=== PATIENT | male | born 1995 | race Caucasian/White ===

== ENCOUNTER 2017-03-04 16:46 | Emergency (ER) | payer BC ==
[2017-03-04 17:21] VITALS: BP 142/76
--- NOTE | 2017-03-04 17:58 | UC ---
Throat Pain/Nasal Mikel HPI - HPI Summary HPI Summary: ONE WEEK OF SINUS CONGESTION, PRESSURE. RIGHT EAR PAIN. PRODUCTIVE COUGH. TWO WEEKS AGO DEVELOPED ITCHY RASH UNDER LEFT ARM (WHERE [place] RUBS). HAS NOT SPREAD. - History of Current Complaint Chief Complaint: UCGeneralIllness Stated Complaint: RASH,CONGESTION,SINUSES Time Seen by Provider: 03/04/17 17:40 Hx Obtained From: Patient Onset/Duration: Gradual Onset, Lasting Weeks Severity: Mild Cough: Productive Associated Signs & Symptoms: Positive: Hoarseness, Sinus Discomfort, Nasal Discharge, Rash - Epiglottits Risk Factors Epiglottis Risk Factors: Negative - Allergies/Home Medications Allergies/Adverse Reactions: Allergies Allergy/AdvReac Type Severity Reaction Status Date / Time No Known Allergies Allergy Verified 03/04/17 17:04 PMH/Surg Hx/FS Hx/Imm Hx Previously Healthy: Yes - Surgical History Surgical History: None - Family History Known Family History: Positive: Other - Denies [facility] of [place] - Social History Occupation: Student Lives: With Family Alcohol Use: Occasionally Substance Use Type: None Smoking Status (MU): Never Smoked Tobacco - Immunization History Most Recent Influenza Vaccination: no Review of Systems Constitutional: Fatigue Skin: Rash Eyes: Negative ENT: Ear Ache, Nasal Discharge, Sinus Congestion, Sinus Pain/Tenderness Respiratory: Cough Cardiovascular: Negative Gastrointestinal: Negative Genitourinary: Negative Motor: Negative Neurovascular: Negative Musculoskeletal: Negative Neurological: Negative Psychological: Negative Is Patient Immunocompromised?: No All Other Systems Reviewed And Are Negative: Yes Physical Exam Triage Information Reviewed: Yes Appearance: Well-Appearing, No Pain Distress, Well-Nourished Vital Signs: Initial Vital Signs Temp 97.3 F 03/04/17 17:04 Pulse 80 03/04/17 17:04 Resp 16 03/04/17 17:04 BP 142/76 03/04/17 17:04 Pulse Ox 99 03/04/17 17:04 Vital Signs Reviewed: Yes Eye Exam: Normal ENT: Positive: Pharyngeal erythema, Nasal congestion, Nasal drainage, TM dull Dental Exam: Normal Neck exam: Normal Neck: Positive: Supple, Nontender Respiratory Exam: Normal Respiratory: Positive: Chest non-tender, Lungs clear, Normal breath sounds, No respiratory distress, No accessory muscle use Cardiovascular Exam: Normal Cardiovascular: Positive: RRR, No Murmur, Pulses Normal Abdominal Exam: Normal Musculoskeletal Exam: Normal Musculoskeletal: Positive: Strength Intact, ROM Intact Neurological Exam: Normal Psychological Exam: Normal Skin: Positive: rashes - EXCORIATED IRREGULAR ERRETHEMATOUS MACULE 3CM X 4CM UNDER LEFT ARM (MEDIAL BICEPS ASPECT) Throat Pain/Nasal Course/Dx - Differential Dx/Diagnosis Differential Diagnosis/HQI/PQRI: Sinusitis, URI Provider Diagnoses: SINUSITIS, CONTACT DERMATITIS LEFT ARM Discharge - Discharge Plan Condition: Stable Disposition: HOME Prescriptions: Amoxicillin/Clavulanate TAB* [Augmentin TAB 875*] 875 mg PO BID #20 tab Benzonatate CAP* [Tessalon 100 MG CAP*] 100 mg PO TID PRN #15 cap PRN Reason: Cough Triamcinolone 0.1% Oint (NF) [Triamcinolone Acetonide] 0 % TOPICAL TID #1 tube Patient Education Materials: Contact Dermatitis (ED), Sinusitis (ED) Forms: *School Release Referrals: Non Staff,Doctor [Primary Care Provider] -
== END 2017-03-04 17:57 | disposition home or self-care (01) ==
LOC: UCCORT 16:46
DX: J32.9 Chronic sinusitis, unspecified (principal); L25.9 Unspecified contact dermatitis, unspecified cause; H92.01 Otalgia, right ear; R05 Cough; R53.83 Other fatigue
CPT/HCPCS: 99212; G0463

== ENCOUNTER 2017-08-02 12:22 | Emergency (ER) | payer BC ==
[2017-08-02 13:01] VITALS: BP 124/65
--- NOTE | 2017-08-02 13:27 | ED ---
Throat Pain/Nasal Congestion - HPI Summary HPI Summary: 22 yr old male with the complaint of left lower eyelid swelling, irritation, and redness. Also complains of can't hear out of right ear well, and has ear pain. Onset of both symptoms yesterday. He denies ear and eye drainage. No change in vision. No pain in the eye itself, just the lower eyelid. He is a [employer] student. - History of Current Complaint Chief Complaint: UCEye Time Seen by Provider: 08/02/17 13:08 - Allergies/Home Medications Allergies/Adverse Reactions: Allergies Allergy/AdvReac Type Severity Reaction Status Date / Time No Known Allergies Allergy Verified 08/02/17 13:01 PMH/Surg Hx/FS Hx/Imm Hx Previously Healthy: Yes Infectious Disease History: No Infectious Disease History: Denies: Traveled Outside the [place] in Last 30 Days - Family History Known Family History: Positive: Other - Denies [facility] of [place] - Social History Occupation: Student Lives: Dormitory/Roommates Alcohol Use: Weekly Substance Use Type: Reports: None Smoking Status (MU): Never Smoked Tobacco Review of Systems Negative: Fever, Chills Positive: Erythema - lower left eyelid with some swelling. Negative: Photophobia, Blurred Vision, Diplopia, Drainage Positive: Ear Ache Respiratory: Negative All Other Systems Reviewed And Are Negative: Yes Physical Exam Triage Information Reviewed: Yes Vital Signs On Initial Exam: Initial Vitals Temp Pulse Resp BP Pulse Ox 98.1 F 83 17 124/65 100 08/02/17 12:56 08/02/17 12:56 08/02/17 12:56 08/02/17 12:56 08/02/17 12:56 Vital Signs Reviewed: Yes Appearance: Positive: Well-Appearing, No Pain Distress Skin: Positive: Warm Head/Face: Positive: Normal Head/Face Inspection Eyes: Positive: EOMI - No pain on ROM of eyes., HARRY, Other: - left lower eyelid with some edema, redness, and he has hordeolum externum formation medial lower lid. No drainage. ENT: Positive: Pharynx normal, TM bulging - right, TM red - right TM is red with effusion. Negative: Tonsillar swelling, Tonsillar exudate, Muffled voice, Hoarse voice Neck: Positive: Nontender, No Lymphadenopathy Respiratory/Lung Sounds: Positive: Clear to Auscultation, Breath Sounds Present Cardiovascular: Positive: RRR. Negative: Murmur Abdomen Description: Positive: Nontender Musculoskeletal: Positive: Strength/ROM Intact Neurological: Positive: Sensory/Motor Intact, Alert, Oriented to Person Place, Time, CN Intact II-III, Normal Gait, Speech Normal - [place] Coma Scale Best Eye Response: 4 - Spontaneous Best Motor Response: 6 - Obeys Commands Best Verbal Response: 5 - Oriented Coma Scale Total: 15 Diagnostics - Vital Signs Vital Signs Temp Pulse Resp BP Pulse Ox 08/02/17 12:56 98.1 F 83 17 124/65 100 - Laboratory Lab Statement: Any lab studies that have been ordered have been reviewed, and results considered in the medical decision making process. EENT Course/Dx - Course Course Of Treatment: 22 yr old with right OM and hordeolum externum left lower eyelid. Rx augmentin, and also erythromycin eye ointment. - Diagnoses Provider Diagnoses: Hordeolum externum left lower eyelid, Otitis media Discharge - Sign-Out/Discharge Documenting (check all that apply): Discharge/Admit/Transfer - Discharge Plan Condition: Good Disposition: HOME Prescriptions: Amoxicillin/Clavulanate TAB* [Augmentin TAB 875*] 875 mg PO BID #20 tab Erythromycin OPTH OINT* [Erythromycin 0.5% OPTH OINT*] 1 applic LEFT EYE TID #1 tube Patient Education Materials: Stye (ED), Ear Infection (ED) Forms: *Physical Education Release Referrals: [facility] [Outside] - 2 Days Non Staff,Doctor [Primary Care Provider] - - Billing Disposition and Condition Condition: GOOD Disposition: HOME
== END 2017-08-02 13:38 | disposition home or self-care (01) ==
LOC: UCCORT 12:22
DX: H00.015 Hordeolum externum left lower eyelid (principal); H66.91 Otitis media, unspecified, right ear
CPT/HCPCS: 99212; G0463